=== PATIENT | male | born 1930 | race Caucasian/White ===

== ENCOUNTER 2017-01-01 17:42 | Emergency (ER) | payer MEDICARE, OTHER ==
--- NOTE | 2017-01-01 19:03 | ED Physician Chart ---
Chief Complaint/HPI - Patient Information Date Seen:: 01/01/17 Time Seen:: 18:55 Chief Complaint:: rash History of Present Illness:: pt sent from [place] for onset rash. pt has dementia and speaks in chinese...I have difficulty understanding but family can understand ok. staff were concerned about rash at rt side of trunk..poss shingles. no recent fever. no uri sx. no ZEPEDA. no weakness. no visual change. pt is not complaining of any pain. no cough. no sob. he has a minor injury to l shldr on unknown age(no hx was given of this and family unaware) that has been steristripped and looks clean and noninfected. he has full rom of l shldr w/o pain. family does not want this pt to be admitted. case dw dr yeh and he concurs that pt may be dcd to ut w rx acyclovir and steroid. he will see pt tmrw in [place] for rechk. Allergies:: Allergies Allergy/AdvReac Type Severity Reaction Status Date / Time No Known Allergies Allergy Verified 04/26/16 15:28 Vitals:: Vital Signs - 8 hr 01/01/17 18:26 Temp 98.2 F HR 75 RR 17 BP 127/63 O2 Sat % 95 Historian:: Patient, Family Member (3dtrs present at ed bedside) Review of Systems - Review of Systems General/Constitutional: No fever, No chills, No weight loss, No weakness, No diaphoresis, No edema, No loss of appetite Skin: Skin lesions, Rash, No bruising Head: No headache, No light-headedness Eyes: No loss of vision, No pain, No diplopia ENT: No earache, No nasal drainage, No sore throat, No tinnitus Neck: No neck pain, No swelling, No thyromegaly, No stiffness, No mass noted Cardio Vascular: No chest pain, No palpitations, No PND, No orthopnea, No edema Pulmonary: No SOB, No cough, No sputum, No wheezing GI: No nausea, No vomiting, No diarrhea, No pain, No melena, No hematochezia, No constipation, No hematemesis G/U: No dysuria, No frequency, No hematuria Musculoskeletal: No bone or joint pain, No back pain, No muscle pain Endocrine: No polyuria, No polydipsia Psychiatric: No prior psych history, No depression, No anxiety, No suicidal ideation Hematopoietic: No bruising, No lymphadenopathy Allergic/Immuno: No urticaria, No angioedema Neurological: No syncope, No focal symptoms, No weakness, No paresthesia, No headache, No seizure, No dizziness, Confusion, No vertigo Past Medical History - Past Medical History Past Medical History: HTN, Dyslipidemia, Dementia, Other (dysphagia, unsteady gait) Social History: Care Facility Medication: Reviewed Family Medical History - Family Member Mother History Unknown: Yes Ethnicity: Living Status: Unknown Hx Family Cancer: (Unknown) Hx Family Coronary Artery Disease: (Unknown) Hx Family Congestive Heart Failure: (Unknown) Hx Family Hypertension: (Unknown) Hx Family Stroke: (Unknown) Hx Family Diabetes: (Unknown) Hx Family Seizures: (Unknown) Hx Family Dementia: (Unknown) Hx Family AIDS: (Unknown) Hx Family COPD: (Unknown) Hx Family Hepatitis: (Unknown) Hx Family Psychiatric Problems: (Unknown) Hx Family Tuberculosis: (Unknown) Physical Exam - Physical Examination General/Constitutional: Awake, Well-developed, well-nourished, Alert, No distress, GCS 15, Non-toxic appearing, Ambulatory Head: Atraumatic Eyes: Lids, conjuctiva normal, PERRL, EOMI Skin: Nl inspection, No ecchymosis, Well hydrated, No lymphadenopathy Other Skin comments:: pt has a red rash w open sores(noninfected) from sternum around rt side to midline in back about 3 inches wide and at aprox t4/5 level.. no sev tndrness. ok rom. ENMT: External ears, nose nl, Nasal exam nl, Lips, teeth, gums nl Neck: Nontender, Full ROM w/o pain, No JVD, No nuchal rigidity, No bruit, No mass, No stridor Respiratory: Nl effort/Exclusion, Clear to Auscultation, No Wheeze/Rhonchi/Rales Cardio Vascular: RRR, No murmur, gallop, rubs, NL S1 S2 GI: No tenderness/rebounding/guarding, No organomegaly, No hernia, Normal BS's, Nondistended, No mass/bruits, No McBurney tenderness : No CVA tenderness Extremities: No tenderness or effusion, Full ROM, normal strength in all extremities, No edema, Normal digits & nails Other Extremities comments:: left shldr has small steristripped wound ..ok rom. no infection. no edema. Neuro/Psych: Alert/oriented, DTR's symmetric, Normal sensory exam, Normal motor strength, Mood normal, Normal gait, No focal deficits Other Neuro/Psych comments:: some degree dementia. chinese only understood by family who say he is at his usual mental baseline Misc: normal gait, Normal back, No paraspinal tenderness ED Septic Shock - . Is Septic Shock (SBP<90, OR Lactate>4 mmol\L) present?: No - <6hrs of presentation: Vital Signs: Vital Signs - 8 hr 01/01/17 18:26 Temp 98.2 F HR 75 RR 17 BP 127/63 O2 Sat % 95 Reassessment (Disposition) - Reassessment Reassessment Condition:: Unchanged - Diagnosis Diagnosis:: 1 herpes zostre - Aftercare/Follow up Instructions Aftercare/Follow-Up Instructions:: Counseled pt & family regarding lab results/ diagnosis & need follow up Medication Prescribed:: rx acyclovir, medrol pack. bacitracin topical. pt to have bacitracin applied 2x/day and rash kept covered and clean. notify dr of any infection or worse/spreading rash. - Patient Disposition Discharge/Transfer:: [facility] - [facility] Condition at Disposition:: Unchanged
== END 2017-01-01 20:30 | disposition home or self-care (01) ==
LOC: ER 17:42
DX: B02.9 Zoster without complications (principal); I10 Essential (primary) hypertension; E78.5 Hyperlipidemia, unspecified
CPT/HCPCS: Z7502; Z7610